=== PATIENT | male | born 1990 | race Caucasian/White ===

== ENCOUNTER → 2024-05-22 13:29 | Outpatient (CLI) | payer OTHER, SELFPAY ==
--- NOTE | 2024-05-22 13:32 | DI.MRI.S_ITS ---
PROCEDURE: MR SHOULDER RT WO CON INDICATIONS: right shoulder pain TECHNIQUE: Noncontrast oblique coronal T2 fast spin echo with fat saturation, oblique sagittal T1 spin echo and T2 fast spin echo with fat saturation, axial T1 spin echo and T2 fast spin echo with fat saturation through the shoulder. COMPARISON: None. FINDINGS: Image quality: Excellent. Rotator cuff: Mild supraspinatus tendinosis with focal low-grade partial articular sided tearing at the critical zone. The infraspinatus and teres minor tendons are intact. Mild subscapularis tendinosis. No significant rotator cuff muscle atrophy. Bones and bursae: No acute trabecular bone injury or fracture. Small chronic traction cystic changes are seen at the posterior superior humeral head. No focal glenohumeral cartilage defect. [id number] degenerative changes are seen at the acromioclavicular joint with subchondral cystic changes and small marginal osteophytes. Trace fluid in the subacromial/subdeltoid bursa. No significant glenohumeral effusion. Capsule and soft tissues: Suspected focal chronic nondisplaced tearing of the posterior superior labrum. The remainder of the labrum appears to be intact in the absence of significant joint fluid. Proximal biceps long head tendon is intact. There is partial effacement of the fat signal in the rotator interval. The anterior band of the inferior glenohumeral ligament is thickened. IMPRESSION: 1. Focal low-grade partial articular sided tearing of the distal supraspinatus tendon at the critical zone. Mild supraspinatus and subscapularis tendinosis. 2. Suspected focal chronic nondisplaced tearing of the posterior superior labrum. 3. [id number] acromioclavicular joint osteoarthrosis. 4. Trace subacromial/subdeltoid bursal effusion or mild bursitis. 5. Partial effacement of the rotator interval fat and thickening of the inferior glenohumeral ligament are nonspecific, but can be seen in the setting of the clinical syndrome of adhesive capsulitis. Approved by: Ramirez Lane M.D. on 05/22/2024 at 21:42
== END ==
PROVIDERS: PCP Family Medicine; Referring Provider Family Medicine; Visit Provider Family Medicine
DX: M75.111 Incomplete rotator cuff tear or rupture of right shoulder, not specified as traumatic (principal); M19.011 Primary osteoarthritis, right shoulder; M25.511 Pain in right shoulder
CPT/HCPCS: 73221